=== PATIENT | female | born 2000 | race Caucasian/White ===

== ENCOUNTER 2019-09-27 12:08 | Emergency (ER) | payer OTHER ==
[~2019-09-27] VITALS: Ht 170 cm; Wt 69.3 kg
[2019-09-27] MEDS ORDERED: CEPH500T PO (13:08)
[2019-09-27] MEDS ORDERED: HYDR-3870 PO (13:08)
--- NOTE | 2019-09-27 13:08 | ED Integumentary General ---
General Chief Complaint: Skin/Wound Problems Stated Complaint: L LEG SPIDER BITE Source: patient Exam Limitations: no limitations History of Present Illness Date Seen by Provider: Sep 27, 2019 Time Seen by Provider: 13:03 Initial Comments To ER with a suspected spider bite to the lateral aspect left thigh. This began last night, she was laying in bed and felt something sharp in her left leg. She threw her sheets off but was unable to see any sort of insect. She waking this morning to an ecchymotic appearing areas surrounded by erythema and quite a bit of pain. She denies any joint pain, dark urine, nausea, body aches fevers or chills. No rash. Timing/Duration: just prior to arrival Severity: moderate Possible Cause: insect bite Associated Symptoms: denies symptoms Allergies and Home Medications Patient Home Medication List Home Medication List Reviewed: Yes Review of Systems Review of Systems Constitutional: see HPI EENTM: see HPI Respiratory: no symptoms reported Cardiovascular: no symptoms reported Genitourinary: no symptoms reported Musculoskeletal: no symptoms reported Skin: see HPI Psychiatric/Neurological: No Symptoms Reported Endocrine: No Symptoms Reported Hematologic/Lymphatic: No Symptoms Reported Past Lkrpflq-Jeedyf-Kbnoey Hx Patient Social History Recent Foreign Travel: No Contact w/Someone Who Travel: No Physical Exam Vital Signs Capillary Refill : General Appearance: WD/WN, no apparent distress Neck: non-tender, full range of motion Respiratory: no respiratory distress, no accessory muscle use Neurologic/Psychiatric: alert, normal mood/affect, oriented x 3 Skin: normal color, warm/dry Skin Problem Location: other (there is about a 3 x 4 or 5 cm area of blanched skin slightly ecchymotic appearing surrounded by erythema. No fluctuance to suggest abscess. This does appear to be true brown recluse envenomation.) Departure Impression Primary Impression: Brown recluse spider bite Disposition: 01 HOME, SELF-CARE Condition: Stable Departure-Patient Inst. Decision time for Depature: 13:05 Referrals: PAPITO ELIZONDO MD [facility] (PCP) Primary Care Physician Patient Instructions: Wound Care, Spider Bites Add. Discharge Instructions: Use an ice pack for 20-30 minutes a few times a day to this area. This will help reduce tissue damage from the venom. Take the antibiotics and pain medication as directed. Call either Dr. Foster at [facility] or surgeon Dr. ELIZONDO tomorrow to make an appointment for follow-up this week. Unfortunately this will take about 3-4 weeks to resolve. Return to ER for any dark urine, muscle aches, fevers chills vomiting. All discharge instructions reviewed with patient and/or family. Voiced understanding. Scripts Cephalexin (Cephalexin) 500 Mg Tablet 500 MG PO QID, #20 TAB 0 Refills Prov: CRIS PAREDES APRN 09/27/19 Copy Copies To 1: PAPITO ELIZONDO MD; DIONICIO FOSTER MD, PETER J APRN Sep 27, 2019 13:08
[2019-09-27] MEDS ORDERED: ALPR0.5T7 (13:15)
[2019-09-27] MEDS ORDERED: LISD50CA (13:15)
[2019-09-27] MEDS ORDERED: DEXT10TA24 (13:15)
[2019-09-27 13:27] VITALS: BP 121/70
[2019-09-28] MEDS ORDERED: DAPS100T3 PO (01:14)
[2019-09-28] MEDS ORDERED: PRD20T PO (01:14)
== END 2019-09-27 13:27 | disposition home or self-care (01) ==
LOC: ER 12:10
DX: T63.331A Toxic effect of venom of brown recluse spider, accidental (unintentional), initial encounter (principal)
CPT/HCPCS: 99282

== ENCOUNTER 2019-09-28 00:02 | Emergency (ER) | payer OTHER ==
[~2019-09-28] VITALS: Ht 172 cm; Wt 69.0 kg
[~2019-09-28 00:02] MED LIST: ALPR0.5T7; CEPH500T PO; DEXT10TA24; HYDR-3870 PO; LISD50CA
[2019-09-28] MEDS ORDERED: PRD20T PO (01:14)
[2019-09-28] MEDS ORDERED: DAPS100T3 PO (01:14)
--- NOTE | 2019-09-28 01:14 | ED Integumentary General ---
General Chief Complaint: Skin/Wound Problems Stated Complaint: L LEG SPIDER BITE Source: patient History of Present Illness Date Seen by Provider: Sep 28, 2019 Time Seen by Provider: 00:55 Initial Comments PT ARRIVES VIA POV FROM HOME PT WAS SEEN EARLIER TODAY FOR SUSPECTED BROWN RECLUSE SPIDER BITE TO LEFT LATERAL THIGH PT FELT SOMETHING STING HER AT 0300 WHILE SHE WAS SLEEPING--DID NOT SEE WHAT BIT HER AT THE TIME, BUT STATES SHE DID LATER FIND AND KILL 3 SPIDERS, ONE OF WHICH SHE BELIEVES WAS A BROWN RECLUSE. PT HAD BEEN PLACED ON KEFLEX AND HYDROCODONE, AND REFERRED TO DR. ELIZONDO FOR FURTHER CARE PT STATES SHE HAS TAKEN ONE DOSE OF EACH OF THOSE MEDICATIONS AT 2300 TONIGHT--"BECAUSE I'VE BEEN OUT AND ABOUT ALL NIGHT" UNTIL JUST NOW C/ SEVERE PAIN AT THE SITE. HAS NOT TAKEN ANYTHING ELSE FOR PAIN NO FEVER NO DRAINAGE NO NAUSEA/VOMITING PCP: [facility] Allergies and Home Medications Allergies Uncoded Allergies: antihistamines (Adverse Reaction, Mild, 09/28/19) bladder control problems Home Medications Cephalexin 500 Mg Tablet, 500 MG PO QID Prescribed by: CRIS PAREDES on 09/27/19 1308 Dapsone 100 Mg Tablet, 100 MG PO DAILY Prescribed by: VIJAY ESCOBEDO on 09/28/19 0114 Hydrocodone/Acetaminophen 1 Each Tablet, 1 EACH PO Q4-6HR PRN for PAIN-MODERATE Prescribed by: CRIS PAREDES on 09/27/19 1308 Prednisone 20 Mg Tab, 40 MG PO DAILY Prescribed by: VIJAY ESCOBEDO on 09/28/19 0114 Patient Home Medication List Home Medication List Reviewed: Yes Review of Systems Review of Systems Constitutional: no symptoms reported; No chills, No diaphoresis, No dizziness, No fever Respiratory: no symptoms reported Cardiovascular: no symptoms reported Gastrointestinal: no symptoms reported Genitourinary: no symptoms reported Musculoskeletal: see HPI Skin: see HPI Psychiatric/Neurological: No Symptoms Reported Past Zmrjeln-Gmxgyk-Rolsvw Hx Past Med/Social Hx: Reviewed and Corrections made Patient Social History Alcohol Use: Occasionally Uses Recreational Drug Use: No Smoking Status: Never a Smoker 2nd Hand Smoke Exposure: No Recent Foreign Travel: No Contact w/Someone Who Travel: No Recent Hopitalizations: No Physical Abuse: No Sexual Abuse: No Mistreated: No Fear: No Seasonal Allergies Seasonal Allergies: Yes Past Medical History Surgeries: Yes Eye Surgery, Tonsillectomy Respiratory: No Cardiac: No Neurological: No Genitourinary: No Gastrointestinal: No Musculoskeletal: No Endocrine: No HEENT: No Cancer: No Psychosocial: Yes ADD/ADHD, Anxiety Integumentary: No Blood Disorders: No Adverse Reaction/Blood Tranf: No Physical Exam Vital Signs Vital Signs - First Documented 09/28/19 01:02 Temp 36.8 Pulse 101 Resp 18 B/P (MAP) 114/73 (87) Pulse Ox 99 O2 Delivery Room Air Capillary Refill : General Appearance: WD/WN, no apparent distress, other (ANXIOUS) Extremities: other (LEFT LATERAL THIGH WITH 12 X 15 CM AREA OF DUSKINESS AND ERYTHEMA, WITH 2 X 6 CM AREA OF MUCH DEEPER ECCHYMOSIS/DUSKINESS. NO DRAINAGE. NO STREAKS. NO FLUCTUANCE. MARKEDLY TENDER TO PALPATION) Neurologic/Psychiatric: no motor/sensory deficits, alert Skin: normal color, warm/dry, other (BITE SITE ABOVE) Progress/Results/Core Measures Results/Orders Lab Results Laboratory Tests Test 09/28/19 01:20 09/28/19 02:41 Range/Units Urine Color WENDY H Urine Clarity CLOUDY Urine pH 7.0 5-9 Urine Specific [place] 1.010 L 1.016-1.022 Urine Protein 1+ H NEGATIVE Urine Glucose (UA) NEGATIVE NEGATIVE Urine Ketones TRACE H NEGATIVE Urine Nitrite NEGATIVE NEGATIVE Urine Bilirubin NEGATIVE NEGATIVE Urine Urobilinogen 1.0 < = 1.0 MG/DL Urine Leukocyte Esterase TRACE H NEGATIVE Urine RBC (Auto) NEGATIVE NEGATIVE Urine RBC NONE /HPF Urine WBC 0-2 /HPF Urine Squamous Epithelial Cells 0-2 /HPF Urine Crystals NONE /LPF Urine Bacteria TRACE /HPF Urine Casts NONE /LPF Urine Mucus SMALL H /LPF Urine Culture Indicated NO White Blood Count 9.8 4.3-11.0 10^3/uL Red Blood Count 4.91 4.35-5.85 10^6/uL Hemoglobin 14.6 11.5-16.0 G/DL Hematocrit 41 35-52 % Mean Corpuscular Volume 84 80-99 FL Mean Corpuscular Hemoglobin 30 25-34 PG Mean Corpuscular Hemoglobin Concent 35 32-36 G/DL Red Cell Distribution Width 12.8 10.0-14.5 % Platelet Count 235 130-400 10^3/uL Mean Platelet Volume 10.7 H 7.4-10.4 FL Neutrophils (%) (Auto) 86 H 42-75 % Lymphocytes (%) (Auto) 6 L 12-44 % Monocytes (%) (Auto) 6 0-12 % Eosinophils (%) (Auto) 2 0-10 % Basophils (%) (Auto) 0 0-10 % Neutrophils # (Auto) 8.4 H 1.8-7.8 X 10^3 Lymphocytes # (Auto) 0.6 L 1.0-4.0 X 10^3 Monocytes # (Auto) 0.6 0.0-1.0 X 10^3 Eosinophils # (Auto) 0.2 0.0-0.3 10^3/uL Basophils # (Auto) 0.0 0.0-0.1 10^3/uL Prothrombin Time 16.5 H 12.2-14.7 SEC INR Comment 1.3 0.8-1.4 Activated Partial Thromboplast Time 33 24-35 SEC Sodium Level 136 135-145 MMOL/L Potassium Level 3.3 L 3.6-5.0 MMOL/L Chloride Level 104 98-107 MMOL/L Carbon Dioxide Level 21 21-32 MMOL/L Anion Gap 11 5-14 MMOL/L Blood Urea Nitrogen 7 7-18 MG/DL Creatinine 0.79 0.60-1.30 MG/DL Estimat Glomerular Filtration Rate > 60 BUN/Creatinine Ratio 9 Glucose Level 103 70-105 MG/DL Calcium Level 9.2 8.5-10.1 MG/DL Corrected Calcium 9.4 8.5-10.1 MG/DL Total Bilirubin 1.8 H 0.1-1.0 MG/DL Aspartate Amino Transf (AST/SGOT) 12 5-34 U/L Alanine Aminotransferase (ALT/SGPT) 7 0-55 U/L Alkaline Phosphatase 61 40-136 U/L Total Protein 6.4 6.4-8.2 GM/DL Albumin 3.7 3.2-4.5 GM/DL Serum Test, Qualitative NEGATIVE NEGATIVE My Orders Orders - GREGGVIJAY K DO Dapsone Tablet (Dapsone Tablet) (09/28/19 01:15) Ketorolac Injection (Toradol Injection) (09/28/19 01:15) Methylprednisolone Sod Succ (Solu-Medrol (09/28/19 01:15) Ed Iv/Invasive Line Start (09/28/19 01:15) Cbc With Automated Diff (09/28/19 01:15) Comprehensive Metabolic Panel (09/28/19 01:15) Hcg,Qualitative Serum (09/28/19 01:15) Protime With Inr (09/28/19 01:15) Partial Thromboplastin Time (09/28/19 01:15) Ua Culture If Indicated (09/28/19 01:15) Ed Iv/Invasive Line Start (09/28/19 01:15) Lactated Ringers (Lr 1000 Ml Iv Solution (09/28/19 01:15) Ketorolac Injection (Toradol Injection) (09/28/19 01:15) Methylprednisolone Sod Succ (Solu-Medrol (09/28/19 01:15) Vital Signs/I&O 09/28/19 09/28/19 01:02 03:25 Temp 36.8 Pulse 101 91 Resp 18 18 B/P (MAP) 114/73 (87) 125/87 (87) Pulse Ox 99 98 O2 Delivery Room Air Progress Progress Note : Progress Note AREA HAS CLASSIC APPEARANCE OF BROWN RECLUSE BITE PT GIVEN TORADOL AND SOLU-MEDROL FOR PAIN, ALONG WITH DOSE OF DAPSON. PT WITH SIGNIFICANT IMPROVEMENT IN PAIN AT TIME OF DISMISSAL MARKED DELAY IN OBTAINING LAB AND THEN IN GETTING RESULTS Departure Impression Primary Impression: Brown recluse spider bite Disposition: 01 HOME, SELF-CARE Condition: Stable Departure-Patient Inst. Referrals: [facility] (PCP/Family) Primary Care Physician Patient Instructions: Spider Bites Add. Discharge Instructions: CONTINUE CURRENT MEDICATIONS PRESCRIBED YOU MAY TAKE HYDROCODONE EVERY 4 HOURS NEEDED FOR PAIN INCREASE YOUR FLUID INTAKE--DRINK EQUAL AMOUNTS OF WATER AND GATORADE AND DRINK ENOUGH SO YOU ARE URINATING EVERY 2-3 HOURS WHILE AWAKE FOLLOW UP WITH DR. ELIZONDO IN 1-2 DAYS FOR FURTHER CARE--CALL IN AM FOR APPOINTMENT All discharge instructions reviewed with patient and/or family. Voiced understanding. Scripts Prednisone (Prednisone) 20 Mg Tab 40 MG PO DAILY, #6 TAB 0 Refills Prov: VIJAY ESCOBEDO DO 09/28/19 Dapsone (Dapsone) 100 Mg Tablet 100 MG PO DAILY, #10 TAB Prov: VIJAY ESCOBEDO DO 09/28/19 VIJAY ESCOBEDO DO Sep 28, 2019 01:14
[2019-09-28] MEDS ORDERED: methylPREDNISolone 125 MG (Solu-MEDROL) VIAL IVP ONE (01:15)
[2019-09-28] MEDS ORDERED: KETOROLAC 30 MG/ML VIAL IVP STA (01:15)
[2019-09-28] MEDS ORDERED: DAPSONE 100 MG TABLET PO SCH (01:15)
[2019-09-28] MEDS ORDERED: methylPREDNISolone 125 MG (Solu-MEDROL) VIAL IM ONE (01:15)
[2019-09-28] MEDS ORDERED: LACTATED RINGERS 1,000 ML IV ONE (01:15)
[2019-09-28] MEDS ORDERED: KETOROLAC 60 MG/2 ML VIAL IM ONE (01:15)
[2019-09-28 01:33] LABS: BILIRUBIN,URINE NEGATIVE (NEGATIVE); CLARITY,URINE CLOUDY; COLOR,URINE AMBER; GLUCOSE, URINE (UA) NEGATIVE (NEGATIVE); KETONES,URINE TRACE (NEGATIVE); LEUKOCYTE ESTERASE ,URINE TRACE (NEGATIVE); NITRITE,URINE NEGATIVE (NEGATIVE); PROTEIN,URINE 1+ (NEGATIVE)
[2019-09-28 01:45] LABS: BACTERIA,URINE TRACE /HPF; SQUAMOUS EPITHELIAL CELL,UR 0-2 /HPF; WBC,URINE 0-2 /HPF
[2019-09-28 02:53] LABS: BASOPHILS % (AUTO) 0 % (0-10); EOSINOPHILS # (AUTO) 0.2 10^3/uL (0.0-0.3); EOSINOPHILS % (AUTO) 2 % (0-10); HEMATOCRIT 41 % (35-52); HEMOGLOBIN 14.6 G/DL (11.5-16.0); LYMPHOCYTES # (AUTO) 0.6 X 10^3 (1.0-4.0); LYMPHOCYTES % (AUTO) 6 % (12-44); MEAN CORPUSCULAR HEMOGLOBIN 30 PG (25-34); MEAN CORPUSCULAR HGB CONC 35 G/DL (32-36); MEAN CORPUSCULAR VOLUME 84 FL (80-99); MEAN PLATELET VOLUME 10.7 FL (7.4-10.4); MONOCYTES # (AUTO) 0.6 X 10^3 (0.0-1.0); MONOCYTES % (AUTO) 6 % (0-12); NEUTROPHILS # (AUTO) 8.4 X 10^3 (1.8-7.8); NEUTROPHILS % (AUTO) 86 % (42-75); PLATELET COUNT 235 10^3/uL (130-400); RED CELL DISTRIBUTION WIDTH 12.8 % (10.0-14.5); WHITE BLOOD COUNT 9.8 10^3/uL (4.3-11.0)
[2019-09-28 03:00] LABS: ALBUMIN 3.7 GM/DL (3.2-4.5)
[2019-09-28 03:01] LABS: CHLORIDE 104 MMOL/L (98-107); POTASSIUM 3.3 MMOL/L (3.6-5.0); SODIUM 136 MMOL/L (135-145)
[2019-09-28 03:02] LABS: CALCIUM 9.2 MG/DL (8.5-10.1)
[2019-09-28 03:03] LABS: GLUCOSE 103 MG/DL (70-105); INR 1.3 (0.8-1.4); PROTHROMBIN TIME PATIENT 16.5 SEC (12.2-14.7); TOTAL PROTEIN 6.4 GM/DL (6.4-8.2)
[2019-09-28 03:04] LABS: CARBON DIOXIDE 21 MMOL/L (21-32)
[2019-09-28 03:05] LABS: BILIRUBIN,TOTAL 1.8 MG/DL (0.1-1.0)
[2019-09-28 03:06] LABS: ALKALINE PHOSPHATASE 61 U/L (40-136); CREATININE SERUM 0.79 MG/DL (0.60-1.30); GFR ESTIMATED > 60
[2019-09-28 03:08] LABS: BUN/CREATININE RATIO 9
[2019-09-28 03:09] LABS: ALANINE AMINOTRANSFERASE 7 U/L (0-55)
[2019-09-28 03:25] VITALS: BP 125/87
== END 2019-09-28 03:25 | disposition home or self-care (01) ==
LOC: EDUNIT# 00:02 → ER 00:03
DX: T63.331A Toxic effect of venom of brown recluse spider, accidental (unintentional), initial encounter (principal); Z88.8 Allergy status to other drugs, medicaments and biological substances
CPT/HCPCS: 36415; 80053; 81000; 84703; 85025; 85610; 85730

== ENCOUNTER 2019-10-10 01:31 | Emergency (ER) | payer OTHER ==
[~2019-10-10] VITALS: Ht 170 cm; Wt 68.0 kg
[~2019-10-10 01:31] MED LIST changes: +DAPS100T3 PO; +PRD20T PO
--- OUTSIDE RECORDS SUMMARY | 2019-10-10 01:42 | XMS REPORT | Continuity of Care Document ---
Author Organization Unknown Address Unknown Phone Unavailable Allergies Active Description Code Type Severity Reaction Onset Reported/Identified Relationship to Patient Clinical Status Yes antihistamines antihistamines Mild N/A 09/28/2019 Medications There is no data. Problems Date Dx Coded Attending Type Code Diagnosis Diagnosed By 09/30/2019 CRIS PAREDES APRN Ot T63.331A TOXIC EFFECT OF VENOM OF BROWN RECLUSE S 09/30/2019 GREGG DOVIJAY Ot T63.331 A TOXIC EFFECT OF VENOM OF BROWN RECLUSE S 09/30/2019 GREGG HUANGVIJAY Ot Z88.8 ALLERGY STATUS TO OTH DRUG/MEDS/BIOL SUB Procedures There is no data. Results Test Result Range Complete urinalysis with reflex to cultu re - 09/28/19 01:20 Urine color determination WENDY NRG Urine clarity determination CLOUDY NR G Urine pH measurement by test strip 7.0 5-9 Specific gravity of urine by test strip 1.010 1.016-1.022 Urine protein assay by test strip, semi-quantitative 1+ NEGATIVE Urine glucose detection by automated test strip NE GATIVE NEGATIVE Erythrocytes detection in urine sediment by light micr oscopy NEGATIVE NEGATIVE Urine ketones detection by automated test strip TR GALO NEGATIVE Urine nitrite detection by test strip NEGATIVE NEGATIVE Urine total bilirubin detection by test strip NEGA TIVE NEGATIVE Urine urobilinogen measurement by automated test strip (mass/volume) 1.0 mg/dL < = 1.0 Urine leukocyte esterase detection by dipstick TRA CE NEGATIVE Automated urine sediment erythrocyte cou nt by microscopy (number/high power field) NONE NRG Automated urine sediment leukocyte count by microscopy (number/high power field) [HPF] NRG Bacteria detection in urine sediment by light microsco py TRACE NRG Squamous epithelial cells detection in u rine sediment by light microscopy 0-2 NRG Crystals detection in urine sediment by light microsco py NONE NRG Casts detection in urine sediment by light microscopy NONE NRG Mucus detection in urine sediment by light microscopy SMALL NRG Complete urinalysis with reflex to culture NO NRG Comprehensive metabolic panel - 09/28/19 02:41 Serum or plasma sodium measurement (moles/volume) 136 mmol/L 135-145 Serum or plasma potassium measurement (moles/volume) 3.3 mmol/L 3.6-5.0 Serum or plasma chloride measurement (moles/volume) 104 mmol/L 98-107 Carbon dioxide 21 mmol/L 21-32 Serum or plasma anion gap determination (moles/volume) 11 mmol/L 5-14 Serum or plasma urea nitrogen measurement (mass/volume ) 7 mg/dL 7-18 Serum or plasma creatinine measurement (mass/volume) 0.79 mg/dL 0.60-1.30 Serum or plasma urea nitrogen/creatinine mass ratio 9 NRG Serum or plasma creatinine measurement w ith calculation of estimated glomerular filtration rate > NRG Serum or plasma glucose measurement (mass/volume) 103 mg/dL 70-105 Serum or plasma calcium measurement (mass/volume) 9.2 mg/dL 8.5-10.1 Serum or plasma total bilirubin measurement (mass/volu me) 1.8 mg/dL 0.1-1.0 Serum or plasma alkaline phosphatase zarina surement (enzymatic activity/volume) 61 U/L 40-136 Serum or plasma aspartate aminotransfera se measurement (enzymatic activity/volume) 12 U/L 5-34 Serum or plasma alanine aminotransferase measurement (enzymatic activity/volume) 7 U/L 0-55 Serum or plasma protein measurement (mass/volume) 6.4 g/dL 6.4-8.2 Serum or plasma albumin measurement (mass/volume) 3.7 g/dL 3.2-4.5 CALCIUM CORRECTED 9.4 mg/dL 8.5-10.1 Complete blood count (CBC) with automate d white blood cell (WBC) differential - 09/28/19 02:41 Blood leukocytes automated count (number/volume) 9.8 10*3/uL 4.3-11.0 Blood erythrocytes automated count (number/volume) 4.91 10*6/uL 4.35-5.85 Venous blood hemoglobin measurement (mass/volume) 14.6 g/dL 11.5-16.0 Blood hematocrit (volume fraction) 41 % 35-52 Automated erythrocyte mean corpuscular volume 84 [ foz_us] 80-99 Automated erythrocyte mean corpuscular h emoglobin (mass per erythrocyte) 30 pg 25-34 Automated erythrocyte mean corpuscular h emoglobin concentration measurement (mass/volume) 35 g/dL 32-36 Automated erythrocyte distribution width ratio 12. 8 % 10.0- 14.5 Automated blood platelet count (count/volume) 235 10*3/uL 130-400 Automated blood platelet mean volume measurement 10.7 [foz_us] 7.4-10.4 Automated blood neutrophils/100 leukocytes 86 % 42-75 Automated blood lymphocytes/100 leukocytes 6 % 12-44 Blood monocytes/100 leukocytes 6 % 0-12 Automated blood eosinophils/100 leukocytes 2 % 0-10 Automated blood basophils/100 leukocytes 0 % 0-10 Blood neutrophils automated count (number/volume) 8.4 10*3 1.8-7.8 Blood lymphocytes automated count (number/volume) 0.6 10*3 1.0-4.0 Blood monocytes automated count (number/volume) 0. 6 10*3 0.0-1.0 Automated eosinophil count 0.2 10*3/uL 0 .0-0.3 Automated blood basophil count (count/volume) 0.0 10*3/uL 0.0-0.1 PT panel in platelet poor plasma by coag ulation assay - 09/28/19 02:41 Prothrombin time (PT) in platelet poor plasma by coagu lation assay 16.5 s 12.2-14.7 INR in platelet poor plasma or blood by coagulation as say 1.3 0.8-1.4 Activated partial thromboplastin time (a PTT) in platelet poor plasma bycoagulation assay - 09/28/19 02:41 Activated partial thromboplastin time (a PTT) in platelet poor plasma bycoagulation assay 33 s 24-35 Serum or plasma choriogonadotropin (preg yulissa test) detection - 09/28/19 02:41 Serum or plasma choriogonadotropin ( test) de tection NEGATIVE NEGATIVE Encounters ACCT No. Visit Date/Time Discharge Status Pt. Type Provider Facility Loc./Unit Complaint [id number] 09/28/2019 00:03:00 020 03:25:00 DIS Outpatient VIJAY ESCOBEDO DO, [facility] ER L LEG SPIDER BITE [id number] 09/27/2019 12:10:00 06/21/2 020 13:27:00 DIS Outpatient CRIS PAREDES APRN [facility] ER L LEG SPIDER BITE [id number] 10/10/2019 01:36:[address] Emergency VIJAY ESCOBEDO DO [facility] ER POSS SPIDER BITE ON RT SIDE OF NECK
[2019-10-10] MEDS ORDERED: ACETAMINOPHEN 500 MG TAB (TYLENOL) PO STA (02:11)
[2019-10-10] MEDS ORDERED: LACTATED RINGERS 1,000 ML IV ONE (02:11)
--- NOTE | 2019-10-10 02:44 | ED General ---
General Chief Complaint: Bite-Animal/Human/Insect Stated Complaint: POSS SPIDER BITE ON RT SIDE OF NECK Nursing Triage Note: Pt here x2 weeks ago for brown recluse bite to L leg, now here with new bite to R neck. No SOB or difficulty breathing or swallowing. Denies sick contacts or travel, no cough, fevers/chills at home, or any other concerning sx. Nursing Sepsis Screen: No Definite Risk Source of Information: Patient, Old Records History of Present Illness Date Seen by Provider: Oct 10, 2019 Time Seen by Provider: 02:00 Initial Comments PT ARRIVES VIA POV FROM HOME STATES SHE HAS A SPIDER BITE TO RIGHT LATERAL NECK NOTICED THE AREA ABOUT 2230 TONIGHT DID NOT SEE OR FEEL ANYTHING BITE HER, BUT DID SEE A BROWN RECLUSE LATER PT IS CURRENTLY BEING TREATED FOR A BROWN RECLUSE BITE TO LEFT LATERAL THIGH--HAS BEEN SEEN IN THIS ER FOR IT AND HAS AN APPOINTMENT WITH DR. ELIZONDO ON SATURDAY AND AN APPOINTMENT WITH [facility] ON SATUR[facility] FOR THAT ISSUE. WAS SEEN HERE 09/27/19 INITIALLY, PLACED ON KEFLEX AND HYDROCODONE, AND AGAIN ON 09/28/19 FOR SEVERE PAIN AT THE SITE AND PLACED ON DAPSONE AND PREDNISONE THIS AREA HAS TYPICAL APPEARANCE OF RECLUSE BITE, WITH LARGE CENTRAL NECROTIC AREA COVERED WITH SCAB, AND PREVIOUS SURROUNDING ERYTHEMA IS NO LONGER PRESENT, AND THE AREA IS LESS TENDER AND IS NO LONGER SWOLLEN PT IS NOTED TO HAVE FEVER ON ARRIVAL HERE, PT WAS UNAWARE THAT SHE HAD FEVER PT HAS NO OTHER SYMPTOMS OF ANY KIND NO COUGH/URI SYMPTOMS NO SORE THROAT NO CHANGE IN TASTE OR SMELL NO CHEST PAIN NO SHORTNESS OF BREATH OR WHEEZING NO GI SYMPTOMS NO HEADACHE PT HAS NOT WORKED SINCE SHE GOT FIRST SPIDER BITE 09/27/19--WORKED FOR "[employer] WORKS AT [employer], BUT HAS NOT BEEN ILL PT HAS NOT BEEN STAYING AT HOME DURING COVID PANDEMIC. [facility] Allergies and Home Medications Allergies Uncoded Allergies: antihistamines (Adverse Reaction, Mild, 09/28/19) bladder control problems Home Medications Cephalexin 500 Mg Tablet, 500 MG PO QID Prescribed by: CRIS PAREDES on 09/27/19 1308 Dapsone 100 Mg Tablet, 100 MG PO DAILY Prescribed by: VIJAY ESCOBEDO on 09/28/19 0114 Dapsone 100 Mg Tablet, 100 MG PO DAILY Prescribed by: VIJAY ESCOBEDO on 10/10/19 0357 Hydrocodone/Acetaminophen 1 Each Tablet, 1 EACH PO Q4-6HR PRN for PAIN-MODERATE Prescribed by: CRIS PAREDES on 09/27/19 1308 Prednisone 20 Mg Tab, 40 MG PO DAILY Prescribed by: VIJAY ESCOBEDO on 09/28/19 0114 Prednisone 20 Mg Tab, 40 MG PO DAILY Prescribed by: VIJAY ESCOBEDO on 10/10/19 035 Patient Home Medication List Home Medication List Reviewed: Yes Review of Systems Review of Systems Constitutional: see HPI EENTM: no symptoms reported; No nose congestion, No throat pain Respiratory: no symptoms reported; No cough, No short of breath Cardiovascular: no symptoms reported; No chest pain, No edema Gastrointestinal: no symptoms reported; No abdominal pain, No diarrhea, No loss of appetite, No nausea, No vomiting Genitourinary: no symptoms reported Musculoskeletal: see HPI Skin: see HPI Psychiatric/Neurological: No Symptoms Reported; Denies Headache, Denies Numbness, Denies Paresthesia, Denies Seizure, Denies Tingling, Denies Weakness Hematologic/Lymphatic: No Symptoms Reported Immunological/Allergic: no symptoms reported Past Fidplzg-Yksriy-Ghtqiy Hx Past Med/Social Hx: Reviewed and Corrections made Patient Social History Alcohol Use: Denies Use Recreational Drug Use: No Smoking Status: Never a Smoker 2nd Hand Smoke Exposure: No Recent Foreign Travel: No Contact w/Someone Who Travel: No Recent Infectious Disease Expo: No Recent Hopitalizations: No Physical Abuse: No Sexual Abuse: No Mistreated: No Fear: No Immunizations Up To Date Tetanus Booster (TDap): Less than 5yrs Seasonal Allergies Seasonal Allergies: Yes Past Medical History Surgeries: Yes Eye Surgery, Tonsillectomy Respiratory: No Cardiac: No Neurological: No Genitourinary: No Gastrointestinal: No Musculoskeletal: No Endocrine: No HEENT: No Cancer: No Psychosocial: Yes ADD/ADHD, Anxiety Integumentary: Yes (BROWN RECLUSE BITE LEFT THIGH 09/27/19) Blood Disorders: No Adverse Reaction/Blood Tranf: No Physical Exam Vital Signs Vital Signs - First Documented 10/10/19 02:10 Temp 37.4 Pulse 118 Resp 18 B/P (MAP) 141/105 (117) Pulse Ox 98 O2 Delivery Room Air Capillary Refill : Less Than 3 Seconds Height, Weight, BMI Height: '" Weight: lbs. oz. kg; 23.00 BMI Method: General Appearance: No Apparent Distress, WD/WN, Other (DOES NOT APPEAR ILL OR TO BE IN ANY DISCOMFORT OR DISTRESS. ) HEENT: PERRL/EOMI, TMs Normal, Normal ENT Inspection, Pharynx Normal, Moist Mucous Membranes Neck: Full Range of Motion, Non Tender, Supple, Other (RIGHT LATERAL NECK WITH WHAT APPEARS TO BE A SPIDER BITE--3MM VERY DARK CENTER WITH SURROUNDING ERYTHEMA AND MILD INDURATION OF 2 X3 CM. NO FLUCTUANCE, NO DRAINAGE. NO STREAKS. ) Respiratory: Normal Breath Sounds, No Accessory Muscle Use, No Respiratory Distress Cardiovascular: No Edema, No JVD, No Murmur, Normal Peripheral Pulses, Tachycardia Gastrointestinal: Non Tender, Soft Back: Normal Inspection Extremity: Normal Capillary Refill, Normal Range of Motion, No Calf Tenderness, No Pedal Edema, Other (LEFT LATERAL THIGH WITH PREVIOUS RECLUSE BITE SITE WITH APPROXIMATELY 10 CM SCABBED NECROTIC AREA. NO SURROUNDING ERYTHEMA, NO SWELLING OR INDURATION OR STREAKS. NO DRAINAGE. ) Neurologic/Psychiatric: Alert, Oriented x3, No Motor/Sensory Deficits, Normal Mood/Affect, supervisor prepress II-XII Norm as Tested Skin: Normal Color, Warm/Dry, Other ( ABOVE) Focused Exam Lactate Level Lactic Acid Level Progress/Results/Core Measures Suspected Sepsis Recent Fever Within 48 Hours: No Infection Criteria Present: None New/Unexplained Altered Menta: No Sepsis Screen: No Definite Risk SIRS Temperature: Pulse: 118 Respiratory Rate: 18 Blood Pressure 141 /105 Mean: 117 Results/Orders Lab Results My Orders Medications Given in ED Vital Signs/I&O Capillary Refill : Less Than 3 Seconds Blood Pressure Mean: 117 Progress Note : Progress Note WHEN PT WAS FOUND TO HAVE FEVER, ON INITIAL SET OF VITALS, PPE WAS IMMEDIATELY DONNED AND WORN AT ALL TIMES FOR REMAINDER OF ER STAY COVID-19 TESTING WAS PERFORMED UNEVENTFUL ER STAY Departure Impression Primary Impression: SPIDER BITE TO RIGHT LATERAL NECK Additional Impressions: SUSPECTED BROWN RECLUSE BITE COVID P.U.I Disposition: 01 HOME, SELF-CARE Condition: Stable Departure-Patient Inst. Referrals: [facility] (PCP/Family) Primary Care Physician Patient Instructions: Coronavirus Disease 2019 (COVID-19) (DC), Spider Bites Add. Discharge Instructions: FOLLOW UP WITH [facility] ON SATURDAY AND DR. ELIZONDO ON SATURDAY SCHEDULED TYLENOL AND MOTRIN NEEDED FOR PAIN OR FEVER LOTS OF CLEAR LIQUIDS QUARANTINE YOURSELF AND ALL HOUSEHOLD MEMBERS AND CONTACTS FOR THE NEXT 2 WEEKS--NO ONE ENTERS OR LEAVES YOUR HOUSE FOR 2 WEEKS RETURN TO ER IF SYMPTOMS WORSEN. All discharge instructions reviewed with patient and/or family. Voiced understanding. Scripts Prednisone (Prednisone) 20 Mg Tab 40 MG PO DAILY, #6 TAB 0 Refills Prov: VIJAY ESCOBEDO DO 10/10/19 Dapsone (Dapsone) 100 Mg Tablet 100 MG PO DAILY, #10 TAB Prov: VIJAY ESCOBEDO DO 10/10/19 VIJAY ESCOBEDO DO Oct 10, 2019 02:44
[2019-10-10] MEDS ORDERED: DAPSONE 100 MG TABLET PO SCH (02:45)
[2019-10-10 03:08] LABS: BASOPHILS # (AUTO) 0.1 10^3/uL (0.0-0.1); BASOPHILS % (AUTO) 2 % (0-10); EOSINOPHILS # (AUTO) 0.4 10^3/uL (0.0-0.3); EOSINOPHILS % (AUTO) 6 % (0-10); HEMATOCRIT 31 % (35-52); HEMOGLOBIN 10.6 G/DL (11.5-16.0); LYMPHOCYTES # (AUTO) 2.1 X 10^3 (1.0-4.0); LYMPHOCYTES % (AUTO) 32 % (12-44); MEAN CORPUSCULAR HEMOGLOBIN 33 PG (25-34); MEAN CORPUSCULAR HGB CONC 34 G/DL (32-36); MEAN CORPUSCULAR VOLUME 95 FL (80-99); MEAN PLATELET VOLUME 10.6 FL (7.4-10.4); MONOCYTES # (AUTO) 0.4 X 10^3 (0.0-1.0); MONOCYTES % (AUTO) 7 % (0-12); NEUTROPHILS # (AUTO) 3.5 X 10^3 (1.8-7.8); NEUTROPHILS % (AUTO) 54 % (42-75); PLATELET COUNT 350 10^3/uL (130-400); RED CELL DISTRIBUTION WIDTH 16.7 % (10.0-14.5); WHITE BLOOD COUNT 6.5 10^3/uL (4.3-11.0)
[2019-10-10 03:17] LABS: ALBUMIN 4.1 GM/DL (3.2-4.5); CHLORIDE 102 MMOL/L (98-107); POTASSIUM 3.5 MMOL/L (3.6-5.0); SODIUM 137 MMOL/L (135-145)
[2019-10-10 03:20] LABS: GLUCOSE 100 MG/DL (70-105); TOTAL PROTEIN 7.9 GM/DL (6.4-8.2)
[2019-10-10 03:21] LABS: CARBON DIOXIDE 22 MMOL/L (21-32)
[2019-10-10 03:22] LABS: BILIRUBIN,TOTAL 0.5 MG/DL (0.1-1.0)
[2019-10-10 03:23] LABS: ALKALINE PHOSPHATASE 73 U/L (40-136); CREATININE SERUM 0.79 MG/DL (0.60-1.30); GFR ESTIMATED > 60
[2019-10-10 03:24] LABS: BUN/CREATININE RATIO 8
[2019-10-10 03:26] LABS: ALANINE AMINOTRANSFERASE 39 U/L (0-55)
[2019-10-10 03:36] LABS: ERYTHROCYTE SEDIMENTATION RATE 60 MM/HR (0-20)
[2019-10-10] MEDS ORDERED: DAPS100T3 PO (03:57)
[2019-10-10] MEDS ORDERED: PRD20T PO (03:57)
[2019-10-10 04:13] VITALS: BP 135/77
[2019-10-10 04:21] LABS: BILIRUBIN,URINE NEGATIVE (NEGATIVE); CLARITY,URINE CLEAR; COLOR,URINE YELLOW; GLUCOSE, URINE (UA) NEGATIVE (NEGATIVE); KETONES,URINE NEGATIVE (NEGATIVE); LEUKOCYTE ESTERASE ,URINE NEGATIVE (NEGATIVE); NITRITE,URINE NEGATIVE (NEGATIVE); PROTEIN,URINE NEGATIVE (NEGATIVE)
[2019-10-10 04:29] LABS: BACTERIA,URINE TRACE /HPF
--- NOTE | 2019-10-10 07:32 | Diagnostic Imaging Report ---
Indication: Fever, spider bite Portable chest 3:53 AM Heart size and pulmonary vascularity are normal. Lungs are clear. There are no effusions or pneumothoraces. IMPRESSION: Negative chest Dictated by: Dictated on workstation # [id number]
--- NOTE | 2019-10-10 09:28 | NUR ---
PATIENT CALLED RX CALLED TO [facility] CLOSED SINCE IT IS THE 4TH . RX CALLED TO [facility].
== END 2019-10-10 04:17 | disposition home or self-care (01) ==
LOC: EDUNIT# 01:31 → ER 01:36
DX: T63.301A Toxic effect of unspecified spider venom, accidental (unintentional), initial encounter (principal); Z88.8 Allergy status to other drugs, medicaments and biological substances; Z79.52 Long term (current) use of systemic steroids; Z20.828 Contact with and (suspected) exposure to other viral communicable diseases
CPT/HCPCS: 71045; 80053; 81000; 83605; 83615; 84145; 84703; 85025; 85379; 85652; 86141; 87040; 99284; U0002; 36415; 87635

== ENCOUNTER 2019-11-26 14:04 | Day surgery (SDC) | payer OTHER ==
[2019-11-26] VITALS (7 sets, daily range): BP systolic 96–116; BP diastolic 55–82
[~2019-11-26] VITALS: Ht 170.2 cm; Wt 66.8 kg
[~2019-11-26 14:04] MED LIST changes: -ALPR0.5T7; +ALPR0.5T7 PO; -DEXT10TA24; +DEXT10TA24 PO; -LISD50CA; +LISD50CA PO; +MONT10TA26 PO
[2019-11-26] MEDS ORDERED: BUP/EPI 0.5% 1:200,000 (MARCAINE) 10ML VIAL IJ ONE (14:29)
[2019-11-26] MEDS ORDERED: CLINDAMYCIN 600 MG/50 ML IVPB 50 ML IV ONE (14:30)
[2019-11-26] MEDS ORDERED: MIDAZOLAM 2 MG/2 ML (VERSED) VIAL ONE (14:31)
[2019-11-26] MEDS ORDERED: proPOfol 200 MG/20 ML (DIPRIVAN) VIAL IV ONE (14:31)
[2019-11-26] MEDS ORDERED: LIDOCAINE PF 2% 5 ML (XYLOCAINE) VIAL ONE (14:31)
[2019-11-26] MEDS ORDERED: ONDANSETRON 4 MG/2 ML (SDV) Z0FRAN ONE (14:31)
[2019-11-26] MEDS ORDERED: fentaNYL INJECTION 100 MCG/2 ML AMP ONE (14:31)
[2019-11-26] MEDS ORDERED: SEVOFLURANE (ULTANE) 15 ML INHAL SOLN ONE ×3 (14:32→16:03)
--- NOTE | 2019-11-26 14:41 | Progress Note-Pre Operative ---
Pre-Operative Progress Note H&P Reviewed The H&P was reviewed, patient examined and no changes noted. Date Seen by Provider: Nov 26, 2019 Time Seen by Provider: 14:40 Date H&P Reviewed: Nov 26, 2019 Time H&P Reviewed: 14:35 Pre-Operative Diagnosis: Non-healing left thigh wound STEFFEN HOPKINS APRN Nov 26, 2019 14:41
[2019-11-26] MEDS ORDERED: HYDR-4227 PO (14:43)
--- NOTE | 2019-11-26 14:43 | Discharge Inst-Surgical ---
D/C Lap Instructions-ANDREIO Reconcile Patient Problems Problems Reviewed?: Yes New, Converted, or Re-Newed RX: RX on Chart Follow Up Appt in 2 weeks Activity as tolerated No driving for 24 hours No driving while on pain medications Change dressing as directed Incentive Spirometry use every 2 hours while awake Regular Diet Symptoms to Report: Fever over 101 degree F, Nausea/Vomiting Infection Signs and Symptoms to report: Increased redness, Foul odor of wound, Increased drainage Bathing instructions: May shower Operative Area Clean/Dry; Keep incision clean/dry If any problems/questions: Contact your physician or go to Emergency Room STEFFEN HOPKINS APRN Nov 26, 2019 14:43
[2019-11-26] MEDS ORDERED: morphine INJ 10 MG/ML 1ML (SYR OR VIAL) IVP PRN (14:45)
[2019-11-26] MEDS ORDERED: HYDROcodone/APAP 5 MG/325 MG (LORTAB) TAB PO ONE (14:45)
[2019-11-26] MEDS ORDERED: ACETAMINOPHEN 325 MG TABLET PO PRN (14:45)
[2019-11-26] MEDS ORDERED: ONDANSETRON 4 MG/2 ML (SDV) Z0FRAN IVP PRN ×2 (14:45→16:15)
[2019-11-26] MEDS ORDERED: MEDR150D8 IM (14:55)
--- NOTE | 2019-11-26 16:01 | Progress Note-Post Operative ---
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 Procedure & Operative Findings Date of Procedure 11/26/19 Procedure Performed/Findings debridement skin and subcutaneous tissue left thigh 6x5cm. Anesthesia Type general LMA Estimated Blood Loss Estimated blood loss (mL): minimal Specimens/Packing Specimens Removed right thigh wound PAPITO ELIZONDO MD Nov 26, 2019 16:01
[2019-11-26] MEDS ORDERED: HYDROmorphone 2 MG/ML VIAL (DILAUDID) IV ONE (16:15)
--- NOTE | 2019-11-26 17:30 | NUR ---
PT PROVIDED 3 DAYS WORTH OF DRSG MATERIAL FOR WET TO DRY DAILY DRSG CHANGES. PROCEDURE EXPLAINED TO PT AND MOM.
--- NOTE | 2019-11-27 01:31 | OPERATIVE REPORT ---
DATE OF SERVICE: 11/26/2019 ATTENDING SALESPERSON HOSIERY: [facility]. PREOPERATIVE DIAGNOSIS: Full thickness skin necrosis left lateral thigh secondary to a brown recluse spider bite. POSTOPERATIVE DIAGNOSIS: Full thickness skin necrosis left lateral thigh secondary to a brown recluse spider bite with dimensions of the wound 6 x 5 cm in size. PROCEDURE: Debridement left lateral thigh wound including skin and subcutaneous tissues 6 x 5 cm in size. SURGEON: Papito Elizondo MD APPLIED PSYCHOLOGY TEACHER: Kenny Carranza APRN ANESTHESIA: General laryngeal mask airway with local. ESTIMATED BLOOD LOSS: Minimal. FINDINGS: Hard large dry eschar the full thickness skin and encompassing the subcutaneous tissue from a chronic brown recluse spider bite and resultant wound from the liquefactive necrosis. DISPOSITION: The patient tolerated the procedure well. INDICATIONS: The patient is a 19-year-old female who felt a bite along the left lateral thigh approximately 10 weeks ago. This has initially became red and erythematous and she presented to the Emergency Department where she was given dapsone as well as oral antibiotics. Over time, the wound took the normal pathognomonic course including liquefactive necrosis, which was full thickness and eventually developed a dry eschar. She was seen at [facility] where the large eschar, which was full thickness and exposed subcutaneous fat identified. The patient was then referred over to us for debridement, which we recommend. Currently, there is no redness or erythema of the surrounding skin to indicate any active infection. DESCRIPTION OF PROCEDURE: The patient was brought to the operating room, laid supine on the table. After adequate IV pain and sedative medications and general laryngeal mask airway intubation, the left lower extremity was prepped and draped in standard surgical fashion. A 0.5% Marcaine with epinephrine was then used to anesthetize the overlying skin around the lesion. The lesion was then excised intact using sharp debridement with a #15 blade to good clean, healthy subcutaneous bleeding fat. Good hemostasis was then achieved using electrocautery. The dimension of the wound was 6.5 cm in size. The wound was then copiously irrigated with a Pulsavac chaperone. We then proceeded with packing of the wound with wet to dry dressing and followed this with a Kerlix wrap. The patient tolerated the procedure well. We will instruct her to continue wet to dry dressing on a daily basis. We will also proceed with continuation of antibiotics with Bactrim DS on a b.i.d. basis. We will have her follow up in the office approximately one week. Job ID: [id number] DocumentID: [id number] Dictated Date: 11/26/2019 16:07:40 Molding Room Supervisor Date: 11/27/2019 01:31:01 Dictated By: PAPITO ELIZONDO MD
--- NOTE | 2019-11-27 06:50 | Anesthesia-General Post-Op ---
General Patient Condition Mental Status/LOC: Same as Preop Cardiovascular: Satisfactory Nausea/Vomiting: Absent Respiratory: Satisfactory Pain: Controlled Complications: Absent Post Op Complications Complications None Follow Up Care/Instructions Patient Instructions None needed. Anesthesia/Patient Condition Patient Condition Patient is doing well, no complaints, stable vital signs, no apparent adverse anesthesia problems. No complications reported per nursing. D/C home per [facility] Criteria: Yes TERESITA LOVE CRNA Nov 27, 2019 06:50
== END 2019-11-26 17:30 | disposition home or self-care (01) ==
LOC: SDC 14:04
PROVIDERS: ATTEND Surgery
DX: I96 Gangrene, not elsewhere classified (principal); T63.331A Toxic effect of venom of brown recluse spider, accidental (unintentional), initial encounter; S71.152A Open bite, left thigh, initial encounter; F41.9 Anxiety disorder, unspecified; Z79.899 Other long term (current) drug therapy; F90.9 Attention-deficit hyperactivity disorder, unspecified type; Z88.1 Allergy status to other antibiotic agents; Z88.8 Allergy status to other drugs, medicaments and biological substances
CPT/HCPCS: 84703; 87070; 87075; 87077; 87081; 87106; 87186; 87205